=== PATIENT | male | born 1975 | race Caucasian/White ===

== ENCOUNTER 2017-09-03 09:20 | Emergency (ER) | payer SELFPAY ==
[~2017-09-03] VITALS: Ht 172.7 cm; Wt 82.3 kg
[2017-09-03 09:29] VITALS: Ht 172.7 cm; Wt 82.3 kg
[2017-09-03 12:04] VITALS: BP 138/85
== END 2017-09-03 12:04 | disposition home or self-care (01) ==
LOC: ED 09:20
DX: S05.31XA Ocular laceration without prolapse or loss of intraocular tissue, right eye, initial encounter (principal); I10 Essential (primary) hypertension; W21.02XA Struck by soccer ball, initial encounter; Y93.89 Activity, other specified; Y92.89 Other specified places as the place of occurrence of the external cause; Y99.8 Other external cause status
CPT/HCPCS: 90715; J2001